=== PATIENT | male | born 1960 | race Caucasian/White ===

== ENCOUNTER 2020-01-28 20:09 | Inpatient (IN) ==
[2020-01-28] MEDS ORDERED: AMIODARONE 450 MG/9 ML VIAL IV ONE (21:33)
[2020-01-28] MEDS ORDERED: LORazepam 2 MG/1 ML VIAL IV ONE ×2 (21:54→21:58)
[2020-01-28] MEDS ORDERED: AMIODARONE INJ 450 MG in DEXTROSE 5% 241 ML IV SCH (22:00)
[2020-01-28 22:20] LABS: ABG Base Excess -9.9 MMOL/L (-2.5-2.5); ABG HCO3 16.7 MMOL/L (20-26); ABG Oxygen Saturation 92.8 % (95-100); ABG PCO2 34.6 MM HG (35-48); ABG PH 7.278 (7.35-7.45); ABG TCO2 13.9 MMOL/L (23-27); Allen Test Positive; Pt O2 Delivery Device Venturi Mask
[2020-01-28] MEDS ORDERED: ONDANSETRON 4 MG/2 ML VIAL IV PRN (22:34)
[2020-01-28] MEDS ORDERED: DOCUSATE SODIUM 100 MG CAPSULE PO PRN (22:34)
[2020-01-28] MEDS ORDERED: ACETAMINOPHEN 325 MG TABLET PO PRN (22:34)
[2020-01-28] MEDS ORDERED: ENOXAPARIN 100 MG/ML SYRINGE SUBCUT SCH (23:00)
[2020-01-28] MEDS ORDERED: SODIUM BICARB INJ 50 MEQ in SODIUM CHLORIDE 0.45% 1,000 ML IV SCH (23:30)
[2020-01-29] MEDS ORDERED: NITROGLYCERIN SL 0.4 MG TABLET SL PRN (00:23)
[2020-01-29] MEDS: LORazepam 2 MG/1 ML VIAL IV PRN ×2 (00:35→13:15)
[2020-01-29] MEDS: MORPHINE 4 MG/1 ML VIAL IV PRN (00:35)
[2020-01-29 00:58] LABS: Amorphous Crystals,Urine Occasional /HPF (Few); Apearance,Urine CLOUDY (Clear); Bilirubin,Urine Negative (Negative); Blood, Urine Negative (Negative); Glucose,Urine (UA) Negative (Negative); Hyaline Casts,Urine 73 /LPF (0-3); Ketones,Urine Negative (Negative); Mucus,Urine Occasional /LPF (Occasional); Nitrite,Urine Negative (Negative); Protein,Urine 100 MG/DL; RBC,Urine 7 /HPF (0-4); Sperm,Urine Occasional /HPF (Negative); Squamous Epithelial Cell,Urine Occasional /HPF (0-10); Urine Color Amber (Yellow); Urine Specific Gravity 1.016 (1.001-1.035); WBC,Urine 9 /HPF (0-6)
[2020-01-29 01:02] LABS: Barbiturates Screen,Urine Negative (Negative); Benzodiazepines Screen,Urine Negative (Negative); Cannabinoid Screen,Urine Positive (Negative); Opiate Screen,Urine Negative (Negative); Phencyclidine Screen,Urine Negative (Negative)
[2020-01-29] MEDS ORDERED: TIROFIBAN IV ONE (01:30)
[2020-01-29] MEDS: TIROFIBAN 5,000 MCG/100 ML PREMIX IV SCH ×2 (01:53→10:25)
[2020-01-29] MEDS: DEXTROSE 10% 250 ML IV PRN ×2 (01:55→02:20)
[2020-01-29] MEDS ORDERED: AMIODARONE INJ 450 MG in DEXTROSE 5% 241 ML IV SCH (02:30)
[2020-01-29] MEDS ORDERED: SODIUM CHLORIDE 0.9% 500 ML IV ONE (03:13)
[2020-01-29] MEDS: SODIUM BICARB INJ 50 MEQ in DEXTROSE 5% 1,000 ML IV SCH ×2 (03:28→14:43)
[2020-01-29 03:39] LABS: Basophils # 0.1 10*3/uL (0.0-0.2); Basophils % 0.2 % (0.0-0.8); Hematocrit 50.4 VOL% (42.0-52.0); Hemoglobin 15.1 GM/DL (14.0-18.0); INR 2.6; Immature Granulocytes % 1.2 %; Immature Granulocytes Absolute 0.26 #; Lymphocytes # 0.9 10*3/uL (1.4-4.0); Lymphocytes % 4.1 % (21.2-54.2); Mean Corpuscular Volume 95.6 FL (87-102); Mean Platelet Volume 11.8 FL (9.6-12.0); Monocytes % 11.2 % (1.7-12.7); NRBC # 0.02 10*3/uL; Neutrophils % 83.3 % (38.7-73.9); PT Patient Result 26.6 SECS (9.8-11.9); Platelet Count 352 T/CUMM (130-400); Red Blood Count 5.27 MC/CUMM (3.8-5.5); Red Cell Distribution Width 17.6 % (9.3-17.3); White Blood Count 22.2 T/CUMM (4-12)
[2020-01-29 04:27] LABS: Albumin 3.7 G/DL (3.4-5.0); Bilirubin,Total 7.7 MG/DL (0.2-1.0); Calcium 8.8 MG/DL (8.5-10.1); Osmolality,Calculated 274.8 MOS/KG (273-304); Risk Ratio 6.1; Total Protein 9.1 G/DL (6.4-8.3); VLDL CHOLESTEROL 21.6 MG/DL
[2020-01-29 04:34] LABS: Lymphocytes 4 % (20-55); Platelet Estimate Normal; Segmented Neutrophils 90 % (50-85); Total Cells Counted 100
[2020-01-29 04:35] LABS: Anisocytosis 2+; Macrocytosis Slight; Polychromasia Few
[2020-01-29 04:36] LABS: Hypochromasia Slight
[2020-01-29 05:50] LABS: Hepatitis B Core IgM Quant 0.06 Index; Hepatitis B Surface Ag Quant < 0.10 Index; Hepatitis B Surface Ag Result Negative (Negative); Hepatitis C Virus Ab Quant < 0.02 Index; Hepatitis C Virus Ab Result Negative (Negative)
[2020-01-29] MEDS ORDERED: ENOXAPARIN 100 MG/ML SYRINGE SUBCUT SCH (06:00)
[2020-01-29 07:21] LABS: Calcium 8.3 MG/DL (8.5-10.1); Osmolality,Calculated 267.1 MOS/KG (273-304)
[2020-01-29] MEDS ORDERED: PIPERACILLIN/TAZOBACTAM 3,375 MG in SODIUM CHLORIDE 0.9% 100 ML IV SCH (08:00)
[2020-01-29] MEDS ORDERED: VANCOMYCIN INJ 2,000 MG in SODIUM CHLORIDE 0.9% 500 ML IV ONE (08:00)
[2020-01-29] MEDS ORDERED: SODIUM CHLORIDE 0.9% 250 ML IV ONE (09:17)
[2020-01-29] MEDS: ASPIRIN EC 81 MG TABLET PO SCH (09:56)
[2020-01-29] MEDS ORDERED: SODIUM CHLORIDE 0.9% 1,000 ML IV ONE ×2 (11:27→13:06)
[2020-01-29 11:28] LABS: CKMB % 7.1 %
[2020-01-29 11:31] LABS: Troponin I 24.6 NG/ML (0.00-0.045)
[2020-01-29] MEDS ORDERED: VANCOMYCIN INJ 1,250 MG in SODIUM CHLORIDE 0.9% 250 ML IV PRN (13:05)
[2020-01-29] MEDS: CEFEPIME 1,000 MG in SODIUM CHLORIDE 0.9% 100 ML IV SCH (17:26)
[2020-01-29] MEDS: ROSUVASTATIN 20 MG TABLET PO SCH (20:32)
[2020-01-29 22:41] LABS: Calcium 7.1 MG/DL (8.5-10.1); Osmolality,Calculated 266.4 MOS/KG (273-304)
[2020-01-30] MEDS: SODIUM BICARB INJ 50 MEQ in DEXTROSE 5% 1,000 ML IV SCH (01:15)
[2020-01-30 05:38] LABS: Basophils # 0.1 10*3/uL (0.0-0.2); Basophils % 0.2 % (0.0-0.8); Eosinophils % 0.1 % (0.00-10.9); Hematocrit 39.3 VOL% (42.0-52.0); Hemoglobin 12.5 GM/DL (14.0-18.0); Immature Granulocytes % 0.6 %; Immature Granulocytes Absolute 0.13 #; Mean Corpuscular HGB Conc 31.8 GM/DL (32-36); Mean Corpuscular Volume 89.5 FL (87-102); Mean Platelet Volume 11.6 FL (9.6-12.0); Monocytes % 8.2 % (1.7-12.7); NRBC # 0.02 10*3/uL; Neutrophils % 85.9 % (38.7-73.9); Platelet Count 252 T/CUMM (130-400); Red Blood Count 4.39 MC/CUMM (3.8-5.5); White Blood Count 20.5 T/CUMM (4-12)
[2020-01-30 05:56] LABS: Hypochromasia 1+; Microcytosis 1+; Polychromasia Slight
[2020-01-30 05:57] LABS: Ovalocytes Slight; Platelet Estimate Normal; Target Cells Slight
[2020-01-30] MEDS: ENOXAPARIN 100 MG/ML SYRINGE SUBCUT SCH (06:33)
[2020-01-30 06:34] LABS: Albumin 2.7 G/DL (3.4-5.0); Calcium 7.1 MG/DL (8.5-10.1); Osmolality,Calculated 264.6 MOS/KG (273-304); Total Protein 6.4 G/DL (6.4-8.3)
[2020-01-30] MEDS: ASPIRIN EC 81 MG TABLET PO SCH (09:30)
[2020-01-30] MEDS: DEXTROSE 5% NACL 0.9% 1,000 ML IV SCH ×2 (10:21→18:00)
[2020-01-30] MEDS: LORazepam 2 MG/1 ML VIAL IV PRN ×3 (11:23→20:24)
[2020-01-30] MEDS ORDERED: THIAMINE INJ 100 MG, FOLIC ACID INJ 1 MG, MULTIVITAMIN INJ 10 ML in DEXTROSE 5% NACL 0.... IV ONE (15:30)
[2020-01-30] MEDS: CEFEPIME 1,000 MG in SODIUM CHLORIDE 0.9% 100 ML IV SCH (16:56)
[2020-01-30] MEDS: METOPROLOL SUCCINATE XL 50 MG TABLET PO SCH (20:25)
[2020-01-30] MEDS: ROSUVASTATIN 20 MG TABLET PO SCH (20:27)
[2020-01-31] MEDS: LORazepam 2 MG/1 ML VIAL IV PRN (00:46)
[2020-01-31] MEDS: MORPHINE 4 MG/1 ML VIAL IV PRN (03:05)
[2020-01-31] MEDS: DEXTROSE 5% NACL 0.9% 1,000 ML IV SCH (03:30)
[2020-01-31] MEDS: ENOXAPARIN 100 MG/ML SYRINGE SUBCUT SCH (06:18)
[2020-01-31 07:37] LABS: Basophils % 0.1 % (0.0-0.8); Eosinophils % 0.1 % (0.00-10.9); Hematocrit 40.2 VOL% (42.0-52.0); Hemoglobin 13.2 GM/DL (14.0-18.0); Immature Granulocytes % 0.9 %; Immature Granulocytes Absolute 0.12 #; Lymphocytes # 0.9 10*3/uL (1.4-4.0); Lymphocytes % 6.6 % (21.2-54.2); Mean Corpuscular HGB Conc 32.8 GM/DL (32-36); Mean Corpuscular Volume 88.2 FL (87-102); Mean Platelet Volume 11.4 FL (9.6-12.0); Monocytes % 12.3 % (1.7-12.7); NRBC # 0.03 10*3/uL; Platelet Count 251 T/CUMM (130-400); Red Blood Count 4.56 MC/CUMM (3.8-5.5); Red Cell Distribution Width 17.2 % (9.3-17.3); White Blood Count 13.7 T/CUMM (4-12)
[2020-01-31] MEDS: METOPROLOL SUCCINATE XL 50 MG TABLET PO SCH ×2 (08:56→21:50)
[2020-01-31] MEDS: ASPIRIN EC 81 MG TABLET PO SCH (08:56)
[2020-01-31 09:25] LABS: Albumin 2.9 G/DL (3.4-5.0); Bilirubin,Total 7.5 MG/DL (0.2-1.0); Calcium 6.5 MG/DL (8.5-10.1); Osmolality,Calculated 266.5 MOS/KG (273-304); Total Protein 6.9 G/DL (6.4-8.3)
[2020-01-31] MEDS ORDERED: FUROSEMIDE 40 MG/4 ML VIAL IV ONE (14:02)
[2020-01-31] MEDS: CEFEPIME 1,000 MG in SODIUM CHLORIDE 0.9% 100 ML IV SCH (16:59)
[2020-01-31] MEDS: ROSUVASTATIN 20 MG TABLET PO SCH (21:50)
[2020-02-01] MEDS: DEXTROSE 5% NACL 0.9% 1,000 ML IV SCH (06:53)
[2020-02-01] MEDS: ENOXAPARIN 100 MG/ML SYRINGE SUBCUT SCH (06:53)
[2020-02-01] MEDS: METOPROLOL SUCCINATE XL 50 MG TABLET PO SCH (09:26)
[2020-02-01] MEDS: ASPIRIN EC 81 MG TABLET PO SCH (09:26)
[2020-02-01] MEDS: MORPHINE 4 MG/1 ML VIAL IV PRN (10:05)
[2020-02-01 11:02] LABS: Basophils % 0.2 % (0.0-0.8); Eosinophils % 0.1 % (0.00-10.9); Hematocrit 42.3 VOL% (42.0-52.0); Hemoglobin 13.5 GM/DL (14.0-18.0); Immature Granulocytes % 1.1 %; Immature Granulocytes Absolute 0.19 #; Lymphocytes # 0.8 10*3/uL (1.4-4.0); Lymphocytes % 4.9 % (21.2-54.2); Mean Corpuscular HGB Conc 31.9 GM/DL (32-36); Mean Corpuscular Volume 87.8 FL (87-102); Mean Platelet Volume 11.5 FL (9.6-12.0); Monocytes % 17.9 % (1.7-12.7); NRBC # 0.03 10*3/uL; Neutrophils % 75.8 % (38.7-73.9); Platelet Count 301 T/CUMM (130-400); Red Blood Count 4.82 MC/CUMM (3.8-5.5); Red Cell Distribution Width 17.6 % (9.3-17.3); White Blood Count 16.7 T/CUMM (4-12)
[2020-02-01 11:32] LABS: Calcium 6.6 MG/DL (8.5-10.1); Osmolality,Calculated 274.8 MOS/KG (273-304)
[2020-02-01 11:47] LABS: Anisocytosis Slight; Band Neutrophils 4 % (0-10); Lymphocytes 5 % (20-55); Macrocytosis 1+; Nucleated Red Blood Cells 2 (0-5); Platelet Estimate Normal; Segmented Neutrophils 73 % (50-85); Total Cells Counted 100
[2020-02-01 11:48] LABS: Polychromasia Slight
[2020-02-01] MEDS: THIAMINE INJ 100 MG, FOLIC ACID INJ 1 MG, MULTIVITAMIN INJ 10 ML in DEXTROSE 5% NACL 0.... IV SCH (16:34)
[2020-02-01] MEDS: CEFEPIME 1,000 MG in SODIUM CHLORIDE 0.9% 100 ML IV SCH (16:35)
[2020-02-01] MEDS: LORazepam 2 MG/1 ML VIAL IV PRN (17:44)
[2020-02-01] MEDS: METOPROLOL SUCCINATE XL 25 MG TABLET PO SCH (21:07)
[2020-02-01] MEDS: ROSUVASTATIN 20 MG TABLET PO SCH (21:08)
[2020-02-02] MEDS ORDERED: DEXTROSE 5% NACL 0.9% 1,000 ML IV SCH (04:00)
[2020-02-02 07:05] LABS: Basophils # 0.1 10*3/uL (0.0-0.2); Basophils % 0.3 % (0.0-0.8); Eosinophils % 0.2 % (0.00-10.9); Hematocrit 43.3 VOL% (42.0-52.0); Hemoglobin 14.3 GM/DL (14.0-18.0); Immature Granulocytes % 0.8 %; Immature Granulocytes Absolute 0.15 #; Lymphocytes % 5.4 % (21.2-54.2); Mean Corpuscular Volume 88.2 FL (87-102); Mean Platelet Volume 11.9 FL (9.6-12.0); Monocytes % 19.4 % (1.7-12.7); NRBC # 0.03 10*3/uL; Neutrophils % 73.9 % (38.7-73.9); Platelet Count 203 T/CUMM (130-400); Red Blood Count 4.91 MC/CUMM (3.8-5.5); Red Cell Distribution Width 18.8 % (9.3-17.3); White Blood Count 18.5 T/CUMM (4-12)
[2020-02-02] MEDS: ENOXAPARIN 100 MG/ML SYRINGE SUBCUT SCH (07:08)
[2020-02-02 07:31] LABS: Calcium 6.4 MG/DL (8.5-10.1)
[2020-02-02 07:32] LABS: Osmolality,Calculated 281.5 MOS/KG (273-304)
[2020-02-02 08:38] LABS: Acanthocytes 1+; Anisocytosis 1+; Eosinophils 2 % (0-10); Lymphocytes 9 % (20-55); Macrocytosis 1+; Platelet Estimate Normal; Polychromasia 2+; Segmented Neutrophils 73 % (50-85); Total Cells Counted 100
[2020-02-02] MEDS ORDERED: ZIPRASIDONE 20 MG/1 ML VIAL IM PRN (09:30)
[2020-02-02] MEDS: METOPROLOL SUCCINATE XL 25 MG TABLET PO SCH ×2 (09:38→23:28)
[2020-02-02] MEDS: ASPIRIN EC 81 MG TABLET PO SCH (09:38)
[2020-02-02] MEDS: LORazepam 2 MG/1 ML VIAL IV PRN (10:31)
[2020-02-02] MEDS: SODIUM BICARB INJ 50 MEQ in DEXTROSE 5% NACL 0.45% 1,000 ML IV SCH (13:46)
[2020-02-02] MEDS: THIAMINE INJ 100 MG, FOLIC ACID INJ 1 MG, MULTIVITAMIN INJ 10 ML in DEXTROSE 5% NACL 0.... IV SCH (16:02)
[2020-02-02] MEDS: CEFEPIME 1,000 MG in SODIUM CHLORIDE 0.9% 100 ML IV SCH (16:02)
[2020-02-02] MEDS: ROSUVASTATIN 20 MG TABLET PO SCH (23:28)
[2020-02-03] MEDS: ENOXAPARIN 100 MG/ML SYRINGE SUBCUT SCH (05:39)
[2020-02-03 06:56] LABS: Basophils % 0.1 % (0.0-0.8); Eosinophils % 0.1 % (0.00-10.9); Hematocrit 41.1 VOL% (42.0-52.0); Hemoglobin 13.1 GM/DL (14.0-18.0); Immature Granulocytes % 0.8 %; Immature Granulocytes Absolute 0.12 #; Lymphocytes # 0.9 10*3/uL (1.4-4.0); Lymphocytes % 5.4 % (21.2-54.2); Mean Corpuscular HGB Conc 31.9 GM/DL (32-36); Mean Corpuscular Volume 88.8 FL (87-102); Mean Platelet Volume 11.4 FL (9.6-12.0); Monocytes % 17.9 % (1.7-12.7); NRBC # 0.03 10*3/uL; Neutrophils % 75.7 % (38.7-73.9); Platelet Count 267 T/CUMM (130-400); Red Blood Count 4.63 MC/CUMM (3.8-5.5)
[2020-02-03 07:14] LABS: Calcium 6.7 MG/DL (8.5-10.1)
[2020-02-03] MEDS: SODIUM BICARB INJ 50 MEQ in DEXTROSE 5% NACL 0.45% 1,000 ML IV SCH ×2 (07:20→15:53)
[2020-02-03 08:17] LABS: Eosinophils 1 % (0-10); Hypochromasia Slight; Lymphocytes 4 % (20-55); Microcytosis Slight; Platelet Estimate Normal; Segmented Neutrophils 89 % (50-85); Target Cells 1+; Total Cells Counted 100
[2020-02-03 08:18] LABS: Polychromasia Slight
[2020-02-03 09:45] LABS: Albumin 2.4 G/DL (3.4-5.0); Bilirubin,Direct 9.75 MG/DL (0.0-0.20); Bilirubin,Indirect 5.3 MG/DL (0.0-1.0)
[2020-02-03] MEDS: ASPIRIN EC 81 MG TABLET PO SCH ×2 (10:10→10:18)
[2020-02-03] MEDS: METOPROLOL SUCCINATE XL 25 MG TABLET PO SCH ×3 (10:10→21:01)
[2020-02-03] MEDS: THIAMINE INJ 100 MG, FOLIC ACID INJ 1 MG, MULTIVITAMIN INJ 10 ML in DEXTROSE 5% NACL 0.... IV SCH (16:15)
[2020-02-03] MEDS: CEFEPIME 1,000 MG in SODIUM CHLORIDE 0.9% 100 ML IV SCH (18:39)
[2020-02-03] MEDS: ROSUVASTATIN 20 MG TABLET PO SCH (21:01)
[2020-02-04 07:07] LABS: Basophils % 0.2 % (0.0-0.8); Eosinophils % 0.3 % (0.00-10.9); Hematocrit 42.5 VOL% (42.0-52.0); Hemoglobin 13.5 GM/DL (14.0-18.0); Immature Granulocytes % 0.6 %; Immature Granulocytes Absolute 0.07 #; Lymphocytes # 0.8 10*3/uL (1.4-4.0); Lymphocytes % 6.2 % (21.2-54.2); Mean Corpuscular HGB Conc 31.8 GM/DL (32-36); Mean Corpuscular Volume 88.9 FL (87-102); Mean Platelet Volume 11.3 FL (9.6-12.0); Neutrophils % 74.7 % (38.7-73.9); Platelet Count 219 T/CUMM (130-400); Red Blood Count 4.78 MC/CUMM (3.8-5.5); Red Cell Distribution Width 18.4 % (9.3-17.3); White Blood Count 12.4 T/CUMM (4-12)
[2020-02-04] MEDS: ENOXAPARIN 100 MG/ML SYRINGE SUBCUT SCH (07:14)
[2020-02-04] MEDS: SODIUM BICARB INJ 50 MEQ in DEXTROSE 5% NACL 0.45% 1,000 ML IV SCH (07:15)
[2020-02-04 07:20] LABS: Calcium 7.6 MG/DL (8.5-10.1); Osmolality,Calculated 286.8 MOS/KG (273-304)
[2020-02-04 08:05] LABS: Anisocytosis 1+; Band Neutrophils 3 % (0-10); Lymphocytes 6 % (20-55); Macrocytosis 1+; Platelet Estimate Normal; Segmented Neutrophils 77 % (50-85); Total Cells Counted 100
[2020-02-04 08:06] LABS: Target Cells Few
[2020-02-04] MEDS ORDERED: DEXTROSE 10% 250 ML IV PRN (08:47)
[2020-02-04] MEDS ORDERED: DEXTROSE 10% 250 ML IV SCH (09:00)
[2020-02-04] MEDS: ASPIRIN EC 81 MG TABLET PO SCH (10:10)
[2020-02-04] MEDS: METOPROLOL SUCCINATE XL 25 MG TABLET PO SCH ×2 (10:10→22:47)
[2020-02-04] MEDS: THIAMINE INJ 100 MG, FOLIC ACID INJ 1 MG, MULTIVITAMIN INJ 10 ML in DEXTROSE 5% NACL 0.... IV SCH (16:43)
[2020-02-04] MEDS: CEFEPIME 1,000 MG in SODIUM CHLORIDE 0.9% 100 ML IV SCH (18:28)
[2020-02-04] MEDS: ROSUVASTATIN 20 MG TABLET PO SCH (22:47)
[2020-02-05] MEDS: ENOXAPARIN 100 MG/ML SYRINGE SUBCUT SCH (06:15)
[2020-02-05] MEDS: SODIUM BICARB INJ 50 MEQ in DEXTROSE 5% NACL 0.45% 1,000 ML IV SCH ×2 (10:12→10:15)
[2020-02-05 10:22] LABS: Basophils % 0.2 % (0.0-0.8); Eosinophils # 0.1 10*3/uL (0.0-0.87); Eosinophils % 0.7 % (0.00-10.9); Hematocrit 45.3 VOL% (42.0-52.0); Hemoglobin 14.1 GM/DL (14.0-18.0); Immature Granulocytes Absolute 0.13 #; Lymphocytes # 0.8 10*3/uL (1.4-4.0); Lymphocytes % 5.8 % (21.2-54.2); Mean Corpuscular HGB Conc 31.1 GM/DL (32-36); Mean Corpuscular Volume 89.7 FL (87-102); Mean Platelet Volume 10.5 FL (9.6-12.0); Monocytes % 12.4 % (1.7-12.7); Neutrophils % 79.9 % (38.7-73.9); Platelet Count 196 T/CUMM (130-400); Red Blood Count 5.05 MC/CUMM (3.8-5.5); Red Cell Distribution Width 18.7 % (9.3-17.3); White Blood Count 12.9 T/CUMM (4-12)
[2020-02-05] MEDS: ASPIRIN EC 81 MG TABLET PO SCH (10:25)
[2020-02-05] MEDS: METOPROLOL SUCCINATE XL 25 MG TABLET PO SCH ×2 (10:25→21:57)
[2020-02-05] MEDS: amLODIPine 2.5 MG TABLET PO SCH (10:30)
[2020-02-05 10:41] LABS: Calcium 8.4 MG/DL (8.5-10.1)
[2020-02-05] MEDS: LORazepam 2 MG/1 ML VIAL IV PRN (11:45)
[2020-02-05] MEDS: CEFEPIME 1,000 MG in SODIUM CHLORIDE 0.9% 100 ML IV SCH (17:14)
[2020-02-05] MEDS: THIAMINE INJ 100 MG, FOLIC ACID INJ 1 MG, MULTIVITAMIN INJ 10 ML in DEXTROSE 5% NACL 0.... IV SCH (19:07)
[2020-02-05] MEDS: ROSUVASTATIN 20 MG TABLET PO SCH (21:57)
[2020-02-06 05:02] LABS: Basophils % 0.2 % (0.0-0.8); Eosinophils # 0.2 10*3/uL (0.0-0.87); Eosinophils % 1.7 % (0.00-10.9); Hematocrit 42.7 VOL% (42.0-52.0); Hemoglobin 13.1 GM/DL (14.0-18.0); Immature Granulocytes % 0.4 %; Immature Granulocytes Absolute 0.04 #; Lymphocytes # 0.7 10*3/uL (1.4-4.0); Lymphocytes % 7.3 % (21.2-54.2); Mean Corpuscular HGB Conc 30.7 GM/DL (32-36); Mean Corpuscular Volume 89.1 FL (87-102); Mean Platelet Volume 11.1 FL (9.6-12.0); Monocytes % 14.1 % (1.7-12.7); Neutrophils % 76.3 % (38.7-73.9); Platelet Count 178 T/CUMM (130-400); Red Blood Count 4.79 MC/CUMM (3.8-5.5); Red Cell Distribution Width 18.6 % (9.3-17.3); White Blood Count 10.2 T/CUMM (4-12)
[2020-02-06 05:26] LABS: Lymphocytes 6 % (20-55); Segmented Neutrophils 83 % (50-85); Total Cells Counted 100
[2020-02-06 05:27] LABS: Hypochromasia 2+; Microcytosis 1+; Platelet Estimate Adequate; Polychromasia Slight; Target Cells Slight
[2020-02-06 05:36] LABS: Calcium 7.9 MG/DL (8.5-10.1); Osmolality,Calculated 300.4 MOS/KG (273-304); Total Protein 6.2 G/DL (6.4-8.3)
[2020-02-06 05:38] LABS: Bilirubin,Total 19.3 MG/DL (0.2-1.0)
[2020-02-06] MEDS: DEXTROSE 5% NACL 0.45% 1,000 ML IV SCH ×3 (06:55→22:47)
[2020-02-06] MEDS: ENOXAPARIN 100 MG/ML SYRINGE SUBCUT SCH (07:03)
[2020-02-06] MEDS: ASPIRIN EC 81 MG TABLET PO SCH ×2 (08:43→17:26)
[2020-02-06] MEDS: amLODIPine 2.5 MG TABLET PO SCH ×2 (08:43→17:26)
[2020-02-06] MEDS: METOPROLOL SUCCINATE XL 25 MG TABLET PO SCH ×3 (08:43→23:02)
[2020-02-06] MEDS ORDERED: TUBERCULIN SKIN TEST 0.1 ML SYRINGE INTRADERM ONE (16:26)
[2020-02-06] MEDS: LACTULOSE 20 GM/30 ML UDCUP PO SCH ×2 (17:20→23:01)
[2020-02-06] MEDS: THIAMINE INJ 100 MG, FOLIC ACID INJ 1 MG, MULTIVITAMIN INJ 10 ML in DEXTROSE 5% NACL 0.... IV SCH (17:20)
[2020-02-06] MEDS: ROSUVASTATIN 20 MG TABLET PO SCH (23:01)
[2020-02-07 04:39] LABS: Basophils % 0.3 % (0.0-0.8); Eosinophils # 0.1 10*3/uL (0.0-0.87); Eosinophils % 0.6 % (0.00-10.9); Hematocrit 43.8 VOL% (42.0-52.0); Hemoglobin 13.6 GM/DL (14.0-18.0); Immature Granulocytes % 0.4 %; Immature Granulocytes Absolute 0.05 #; Lymphocytes # 0.9 10*3/uL (1.4-4.0); Lymphocytes % 7.5 % (21.2-54.2); Mean Corpuscular HGB Conc 31.1 GM/DL (32-36); Mean Corpuscular Volume 88.5 FL (87-102); Mean Platelet Volume 11.2 FL (9.6-12.0); Monocytes % 13.3 % (1.7-12.7); Neutrophils % 77.9 % (38.7-73.9); Platelet Count 196 T/CUMM (130-400); Red Blood Count 4.95 MC/CUMM (3.8-5.5); Red Cell Distribution Width 19.2 % (9.3-17.3); White Blood Count 11.8 T/CUMM (4-12)
[2020-02-07] MEDS: ENOXAPARIN 100 MG/ML SYRINGE SUBCUT SCH (06:06)
[2020-02-07] MEDS: LACTULOSE 20 GM/30 ML UDCUP PO SCH ×3 (08:45→23:21)
[2020-02-07] MEDS: METOPROLOL SUCCINATE XL 25 MG TABLET PO SCH ×2 (08:45→23:21)
[2020-02-07] MEDS: amLODIPine 2.5 MG TABLET PO SCH (08:45)
[2020-02-07] MEDS: ASPIRIN EC 81 MG TABLET PO SCH (08:45)
[2020-02-07] MEDS: DEXTROSE 5% NACL 0.45% 1,000 ML IV SCH (09:22)
[2020-02-07 14:59] LABS: Calcium 8.4 MG/DL (8.5-10.1); Osmolality,Calculated 303.3 MOS/KG (273-304)
[2020-02-07] MEDS: THIAMINE INJ 100 MG, FOLIC ACID INJ 1 MG, MULTIVITAMIN INJ 10 ML in DEXTROSE 5% NACL 0.... IV SCH (17:06)
[2020-02-07] MEDS: ROSUVASTATIN 20 MG TABLET PO SCH (23:21)
[2020-02-08] MEDS: DEXTROSE 5% NACL 0.45% 1,000 ML IV SCH ×2 (02:39→14:17)
[2020-02-08] MEDS: ENOXAPARIN 100 MG/ML SYRINGE SUBCUT SCH (05:42)
[2020-02-08] MEDS: ASPIRIN EC 81 MG TABLET PO SCH ×2 (10:20→13:02)
[2020-02-08] MEDS: LACTULOSE 20 GM/30 ML UDCUP PO SCH ×3 (10:20→18:24)
[2020-02-08] MEDS: amLODIPine 2.5 MG TABLET PO SCH ×2 (10:20→13:01)
[2020-02-08] MEDS: METOPROLOL SUCCINATE XL 25 MG TABLET PO SCH ×2 (10:21→13:01)
[2020-02-08 12:09] VITALS: BP 101/65
[2020-02-08 12:46] LABS: INR 1.6; PT Patient Result 17.2 SECS (9.8-11.9)
[2020-02-08 12:59] LABS: Calcium 7.6 MG/DL (8.5-10.1); Osmolality,Calculated 312.7 MOS/KG (273-304); Total Protein 6.9 G/DL (6.4-8.3)
[2020-02-08 13:04] LABS: Bilirubin,Total 22.4 MG/DL (0.2-1.0)
[2020-02-08] MEDS: THIAMINE INJ 100 MG, FOLIC ACID INJ 1 MG, MULTIVITAMIN INJ 10 ML in DEXTROSE 5% NACL 0.... IV SCH (18:24)
[2020-02-09] MEDS ORDERED: ceFAZolin 1,000 MG in SYRINGE 1 EACH IV ONE (08:00)
[2020-02-09] MEDS ORDERED: SODIUM CHLORIDE 0.9% 1,000 ML IV SCH (08:00)
== END 2020-02-08 20:27 | disposition expired ==
LOC: N.ICU 21:16 → SUATTDRO 21:16 → N.2E 01-30 14:20 → N.TELES 02-02 10:21
PROVIDERS: ADMIT Internal Medicine; ATTEND Internal Medicine